=== PATIENT | female | born 1990 | race African-American/Black ===

== ENCOUNTER 2018-08-08 17:04 | Emergency (ER) | payer MEDICAID ==
[2018-08-08 17:20] VITALS: BMI 26.6
[2018-08-08] MEDS ORDERED: PRENAVITE1 TAB (17:23)
[2018-08-08] MEDS ORDERED: ZOFRAN4 MG PO (17:24)
[2018-08-08] MEDS ORDERED: PHENERGAN25 M1 PO (17:25)
[2018-08-08] MEDS ORDERED: TYLENOL W/CODEI1 TAB PO (18:09)
[2018-08-08 18:46] VITALS: BP 117/59
== END 2018-08-08 18:44 | disposition home or self-care (01) ==
LOC: D.ER 17:04
DX: Z04.1 Encounter for examination and observation following transport accident (principal)

== ENCOUNTER 2018-08-23 17:03 | Emergency (ER) | payer MEDICAID ==
[~2018-08-23] VITALS: Ht 160 cm; Wt 63.6 kg
[~2018-08-23 17:03] MED LIST: PHENERGAN25 M1 PO; PRENAVITE1 TAB; TYLENOL W/CODEI1 TAB PO; ZOFRAN4 MG PO
[2018-08-23 17:07] VITALS: Ht 160 cm; Wt 63.6 kg
[2018-08-23 17:34] LABS: BASOPHILS 0.1 % (0-2); EOSINOPHILS 1.6 % (0-7); HEMATOCRIT 30.1 % (36.0-48.0); HEMOGLOBIN 9.9 g/dL (12-16); IMMATURE GRANULOCYTES 0.2 % (0-5); LYMPHOCYTES 21.7 % (15-50); MCH 26.3 pg (26.0-34.0); MCHC 32.9 g/dL (31.0-37.0); MCV 80.1 fL (80.0-100.0); MEAN PLATELET VOLUME 9.2 fL (7.4-10.4); MONOCYTES 7.3 % (2-11); NEUTROPHILS 69.1 % (40-80); RBC 3.76 10x6/uL (4.00-5.40); RDW 16.8 % (11.5-14.5); WBC 8.4 10x3/uL (4.8-10.8)
[2018-08-23 17:52] LABS: ALBUMIN 2.8 g/dL (3.4-5.0); ALKALINE PHOSPHATASE 58 U/L (46-116); ALT (SGPT) 13 U/L (10-68); BILIRUBIN - TOTAL 0.23 mg/dL (0.2-1.3); CALC OSMOLALITY 269 mosm/kg (275-300); CALCIUM 8.8 mg/dL (8.5-10.1); CARBON DIOXIDE 23.1 mmol/L (21.0-32.0); CHLORIDE - SERUM 102 mmol/L (98-107); CREATININE - SERUM 0.6 mg/dL (0.6-1.3); GLUCOSE 92 mg/dL (74-106); POTASSIUM - SERUM 3.8 mmol/L (3.5-5.1); PROTEIN - SERUM 6.8 g/dL (6.4-8.2); SODIUM 136 mmol/L (136-145); UREA NITROGEN 7 mg/dL (7-18); eGFR NON AFRICAN AMERICAN > 90 mL/min (90-120)
[2018-08-23 18:03] LABS: PLATELET COUNT 314 10x3/uL (130-400)
[2018-08-23 18:14] LABS: HCG - QUANTITATIVE (MATERNAL) 90073 mIU/mL
[2018-08-23 19:05] LABS: APPEARANCE CLEAR (CLEAR); BILIRUBIN NEGATIVE (NEGATIVE); COLOR YELLOW (YELLOW); GLUCOSE NEGATIVE (NEGATIVE); KETONE NEGATIVE (NEGATIVE); NITRITE NEGATIVE (NEGATIVE); PROTEIN NEGATIVE (NEGATIVE); UROBILINOGEN NORMAL (NORMAL)
[2018-08-23] MEDS ORDERED: BENTYL10 MG PO (20:02)
[2018-08-23 20:56] VITALS: BP 90/56
== END 2018-08-23 20:57 | disposition home or self-care (01) ==
LOC: D.ER 17:03
PROVIDERS: Emergency Medicine
DX: O26.891 Other specified pregnancy related conditions, first trimester (principal); Z3A.11 11 weeks gestation of pregnancy; R10.9 Unspecified abdominal pain

== ENCOUNTER 2018-09-20 21:13 | Emergency (ER) | payer MEDICAID ==
[~2018-09-20] VITALS: Ht 160 cm; Wt 68.2 kg
[~2018-09-20 21:13] MED LIST changes: +BENTYL10 MG PO
[2018-09-20 21:41] VITALS: Ht 160 cm; Wt 68.2 kg
[2018-09-20 22:05] LABS: BASOPHILS 0.1 % (0-2); EOSINOPHILS 3.4 % (0-7); HEMATOCRIT 30.9 % (36.0-48.0); HEMOGLOBIN 10.4 g/dL (12-16); IMMATURE GRANULOCYTES 0.1 % (0-5); LYMPHOCYTES 12.6 % (15-50); MCH 27.3 pg (26.0-34.0); MCHC 33.7 g/dL (31.0-37.0); MCV 81.1 fL (80.0-100.0); MONOCYTES 11.7 % (2-11); NEUTROPHILS 72.1 % (40-80); PLATELET COUNT 294 10x3/uL (130-400); RBC 3.81 10x6/uL (4.00-5.40); RDW 16.3 % (11.5-14.5)
[2018-09-20 22:15] LABS: ALBUMIN 2.8 g/dL (3.4-5.0); ALKALINE PHOSPHATASE 68 U/L (46-116); ALT (SGPT) 14 U/L (10-68); BILIRUBIN - TOTAL 0.25 mg/dL (0.2-1.3); CALC OSMOLALITY 268 mosm/kg (275-300); CALCIUM 8.5 mg/dL (8.5-10.1); CHLORIDE - SERUM 101 mmol/L (98-107); CREATININE - SERUM 0.6 mg/dL (0.6-1.3); GLUCOSE 124 mg/dL (74-106); POTASSIUM - SERUM 3.3 mmol/L (3.5-5.1); PROTEIN - SERUM 7.3 g/dL (6.4-8.2); SODIUM 135 mmol/L (136-145); UREA NITROGEN 7 mg/dL (7-18); eGFR NON AFRICAN AMERICAN > 90 mL/min (90-120)
[2018-09-20 22:34] LABS: HCG - QUANTITATIVE (MATERNAL) 31295 mIU/mL
[2018-09-20 23:12] LABS: APPEARANCE CLEAR (CLEAR); BILIRUBIN NEGATIVE (NEGATIVE); COLOR YELLOW (YELLOW); GLUCOSE NEGATIVE (NEGATIVE); KETONE MODERATE mg/dL (NEGATIVE); NITRITE NEGATIVE (NEGATIVE); PROTEIN NEGATIVE (NEGATIVE); UROBILINOGEN NORMAL (NORMAL)
[2018-09-21] MEDS ORDERED: PHENERGAN25 M1 PO (00:36)
[2018-09-21 02:11] VITALS: BP 105/57
== END 2018-09-21 02:11 | disposition other institution (70) ==
LOC: D.ER 21:13
PROVIDERS: Emergency Medicine
DX: O21.0 Mild hyperemesis gravidarum (principal); Z3A.13 13 weeks gestation of pregnancy; R55 Syncope and collapse

== ENCOUNTER 2019-02-21 05:54 | Inpatient (IN) | payer MEDICAID ==
[~2019-02-21] VITALS: Ht 160 cm; Wt 81.4 kg
[2019-02-21 06:32] VITALS: BP 103/57; Ht 160 cm; Wt 81.4 kg
[2019-02-21 08:09] LABS: HEMATOCRIT 30.1 % (36.0-48.0); HEMOGLOBIN 9.4 g/dL (12-16); MCH 26.6 pg (26.0-34.0); MCHC 31.2 g/dL (31.0-37.0); MCV 85.3 fL (80.0-100.0); MEAN PLATELET VOLUME 10.3 fL (7.4-10.4); RBC 3.53 10x6/uL (4.00-5.40); WBC 6.4 10x3/uL (4.8-10.8)
--- NOTE | 2019-02-21 11:29 | NUR ---
SOPHIA LOT [id number] REF [id number] EXP 10/05/2023
--- NOTE | 2019-02-21 12:44 | NUR ---
FUNDUS IS MIDLINE AT THE UMBILICUS, FIRM. 2U. LOGAN PAD WITH MODERATE LOCHIA NOTED. NO CLOTS PRESENT. WILL CONTINUE TO MONITOR.
[2019-02-21 13:00] VITALS: BP 103/51
--- NOTE | 2019-02-21 13:00 | NUR ---
RECEIVED TO ROOM BY BED FROM RECOVERY, PT IS AWAKE AND ALERT, RATES PAIN AT 3/10. FUNDUS FIRM AT U/1 WITH LIGHT BLEEDING NOTED. ICE PACK IN PLACE OVER BIKINI INCISION WHICH IS COVERED BY LARGE ABD DRESSING AND IS CLEAN AND DRY. SMITH TO BEDSIDE DRAIN WITH 150ML CLEAR URINE TO COLLECTION CANISTER. IV INFUSING PER ORDER TO LEFT WRIST SITE. PT DENIES NAUSEA AND REQUEST APPLE JUICE TO DRINK. INFANT BROUGHT TO ROOM VIA CRIB PER NURSERY NURSE AND PLACED TO BREAST WITH NO ASSISTANCE NEEDED. CALLLIGHT IN REACH.
--- NOTE | 2019-02-21 13:30 | NUR ---
FUNDUS FIRM AT U/1, MODERATE LOCHIA NOTED, PADS CHANGED AND PT TILTED TO THE RIGHT. DENIES NEEDS.
--- NOTE | 2019-02-21 14:08 | NUR ---
FUNDUS FIRM AT U/1 NO CLOTS WITH MASSAGE, NEW ICE PACK PER REQUEST. FAMILY AT BEDSIDE.
--- NOTE | 2019-02-21 14:44 | NUR ---
PERCOCET 10/325MG GIVEN SCANNED TO EMAR. PT RATES PAIN AT INCISION SITE AT 10. POSITIONED TO HER BACK WITH HEAD OF BED LOWERED. LIGHT TURNED DOWN AND TAKEN TO NURSERY PER REQUEST. SIDE RAILS UP X 2 WITH CALL LIGHT IN REACH.
--- NOTE | 2019-02-21 15:30 | NUR ---
PAIN REASSESSMENT, PT RESTING WITH EYES CLOSED AND RESP EVEN, NO SIGN OF DISTRESS, LEFT UNDISTURBED WITH SIDE RAILS UP X 2 AND CALL LIGHT WITH IN REACH.
--- NOTE | 2019-02-21 16:15 | NUR ---
PT STILL SLEEPING. CALL LIGHT REMAINS WITHIN HER REACH.
--- NOTE | 2019-02-21 17:00 | NUR ---
TORDAL GIVEN FOR C/0 PAIN THAT SHE RATES AT 10/10. TO BREAST AT THIS TIME ALSO, FUNDUS FIRM AND MIDLINE AT U/U. WILL RECHECK PAIN AFTER SHE HAS FINISHED FEEDING
--- NOTE | 2019-02-21 17:45 | NUR ---
PT STATES THAT CRAMPING IS STILL PRESENT BUT NOT SHARP, RATES AT 5/10. LOGAN CARE PER THIS RN WITH WARM WET WASH CLOTH, UNDERPAD, TOWELS AND CHUX CHANGED. SMITH EMPTIED AND IV CLEARED. PT POSITIONS SELF FOR COMFORT. SIDE RAILS UP X 2 WITH CALL LIGHT IN REACH. IN CRIB AT BEDSIDE. LIGHTS OFF.
--- NOTE | 2019-02-21 18:50 | NUR ---
BEDSIDE REPORT COMPLETED.
[2019-02-21 18:57] VITALS: BP 121/67
--- NOTE | 2019-02-21 19:05 | NUR ---
BEDSIDE SHIFT REPORT DONE. PT. IN RT TILT. DROWSY. IN ROOM IN OPEN CRIB AT PRESENT.
[2019-02-21 19:45] VITALS: BP 113/59
--- NOTE | 2019-02-21 19:45 | NUR ---
INTO ROOM FOR ASSESSMENT. PT. LYING IN RT TILT SUPPORTED WITH PILLOW. DROWSY. IV NOTED IN LT WRIST WITH NS WITH 20U PITOCIN INFUSING AT 125CC/HR. NO REDNESS NOR EDEMA AT IV SITE. BREATH SOUNDS CLEAR, BOWEL SOUNDS AUDIBLE. SMITH CATH. PATENT WITH 75 CC URINE NOTED IN FLOW METER. ABD. DRESSING DRY AND INTACT. LOCHIA RUBRA SCANT. ICE CAP REFILLED AND PLACED ON ABD. DRESSING. PT. WITH CALM DEMEANOR. RATES PAIN AN 8 OF 10 AND STATES IS FROM ABD. CRAMPING. PT. HAS RECENTLY COMPLETED .
--- NOTE | 2019-02-21 21:06 | NUR ---
LYING IN LT TILT. EYES CLOSED AND RESPIRATIONS UNLABORED.
[2019-02-21 23:35] VITALS: BP 98/51
--- NOTE | 2019-02-21 23:35 | NUR ---
PT RESTING IN BED. FC DC'D WITH 150ML OF CONCENTRATED YELLOW URINE NOTED. PERIPAD CHANGED AND PANTIES PLACED. SMALL AMOUNT OF LOCHIA NOTED TO PERIPAD. FUNDUS FIRM AT 2 BELOW UMB. IV CONVERTED TO SL. PT ENCOURAGED TO DRINK WATER. ICE PITCHER FILLED. PUDDING PROVIDED PER PT REQUEST. PT INSTRUCTED ON VOID CHECKS AND TO NOTIFY NURSE FOR ASSISTANCE WHEN GETTING UP TO BATHROOM. BED IN LOW POSITION. SRUP X2. CALL LIGHT AND TELEPHONE WITHIN PTS REACH.
--- NOTE | 2019-02-22 00:50 | NUR ---
PT LYING IN BED HOLDING BABY. DENIES ANY COMPLAINTS OR NEEDS AT THIS TIME. BED IN LOW POSITION. SRUP X2. CALL LIGHT AND TELEPHONE WITHIN PTS REACH.
--- NOTE | 2019-02-22 02:05 | NUR ---
PT RESTING IN BED HOLDING BABY. DENIES ANY COMPLAINTS OR NEEDS. INSTRUCTED TO NOTIFY NURSE WITH ANY PROBLEMS, NEEDS, OR CONCERNS. VERBALIZED UNDERSTANDING. BED IN LOW POSITION. SRUP X2. CALL LIGHT AND TELEPHONE WITHIN PTS REACH.
[2019-02-22 04:15] VITALS: BP 113/56
--- NOTE | 2019-02-22 04:30 | NUR ---
PT RESTING IN BED. VSS. PT ASSISTED UP TO BATHROOM WITH NB NURSE AND VOIDED 425ML OF BLOOD TINGED URINE. SMALL CLOT NOTED IN SPECIPAN. PT C/O INCISIONAL PAIN AT 5/10. PERCOCET 5 X1 TABLET GIVEN. WATER PITCHER FILLED. PT INSTRUCTED TO NOTIFY NURSE WITH ANY PROBLEMS, NEEDS, OR CONCERNS. VERBALIZED UNDERSTANDING. BED IN LOW POSITION. SRUP X2. CALL LIGHT AND TELEPHONE WITHIN PTS REACH.
--- NOTE | 2019-02-22 05:45 | NUR ---
PT RESTING QUIETLY IN BED WITH EYES CLOSED. NO DISTRESS NOTED. CALL LIGHT WITHIN OTS REACH.
--- NOTE | 2019-02-22 06:20 | NUR ---
PT RESTING IN BED. IN OPEN CRIB AT BEDSIDE. PT DENIES ANY COMPLAINTS OR NEEDS. INSTRUCTED PT TO NOTIFY NURSE WITH ANY PROBLEMS, NEEDS, OR CONCERNS. VERBALIZED UNDERSTANDING. BED IN LOW POSITION. SRUP X2. CALL LIGHT AND PHONE WITHIN PTS REACH.
[2019-02-22 07:09] LABS: BASOPHILS 0 % (0-2); EOSINOPHILS 0.5 % (0-7); HEMATOCRIT 26.3 % (36.0-48.0); HEMOGLOBIN 8.5 g/dL (12-16); IMMATURE GRANULOCYTES 0.2 % (0-5); LYMPHOCYTES 13.8 % (15-50); MCH 27.4 pg (26.0-34.0); MCHC 32.3 g/dL (31.0-37.0); MCV 84.8 fL (80.0-100.0); MEAN PLATELET VOLUME 10.5 fL (7.4-10.4); MONOCYTES 8.6 % (2-11); NEUTROPHILS 76.9 % (40-80); PLATELET COUNT 206 10x3/uL (130-400)
[2019-02-22 07:11] LABS: WBC 8.2 10x3/uL (4.8-10.8)
--- NOTE | 2019-02-22 07:15 | NUR ---
CALL LIGHT ANSWERED. PT SITTING IN HIGH FOWLERS POSITION HOLDING . PT REPORTS DIFFICULTY SITTING UP TO REACH INFANT CRIB AND REQUESTS HELP WITH DIAPER CHANGE. DIAPER CHANGED AND INFANT BACK TO MOM ARMS FOR . PT DENIES FURTHER NEEDS AT THIS TIME.
--- NOTE | 2019-02-22 08:00 | NUR ---
PT IN HIGH FOWLERS POSITION EATING BREAKFAST TRAY AND HOLDING . PT STATES THAT INFANT DID NOT WANT TO NURSE EARLIER BUT SHE WILL TRY AGAIN SOON SHE IS DONE EATING. PT DENIES PAIN OR NEEDS AT THIS TIME. REPORTS THAT SHE WILL CALL OUT WHEN DONE FOR ASSESSMENT TO TAKE PLACE.
[2019-02-22 08:10] LABS: RAPID PLASMA REAGIN Non Reactive (Non Reactive)
--- NOTE | 2019-02-22 08:26 | NUR ---
PT ASSISTED OOB TO BR, VOIDED 400ML CLEAR YELLOW URINE TO SPECIPAN. TOLERATES ACTIVITY WELL. DENIES FURTHER NEEDS OR CONCERNS AT THIS TIME, CALL LIGHT IN EASY REACH, BED IN LOW POSITION, BED BRAKES LOCKED. WILL MONITOR.
--- NOTE | 2019-02-22 09:00 | NUR ---
PT IN SEMI FOWLERS POSITION RESTING WITH EYES CLOSED. RESP. EVEN AND UNLABORED.
[2019-02-22 09:58] VITALS: BP 102/55
--- NOTE | 2019-02-22 10:00 | NUR ---
PT IN HIGH FOWLERS POSITION VISITING WITH FRIEND. PHYSICAL ASSESSMENT DONE. SEE SHIFT ASSESSMENT. SALINE LOCK IN LEFT WRIST. SITE C/D/I. BOWEL SOUNDS ACTIVE X 4. PT DENIES PASSING GAS SINCE PROCEDURE. LOWER TRANSVERSE ABDOMINAL INCISION NOTED WITH MALACHI. INCISION IS C/D/I. FF/ U/U. LIGHT RUBRA LOCHIA NOTED ON LOGAN PAD. NO CLOTS EXPRESSED WITH MASSAGE. PT RATING PAIN 5/10 IN ABDOMINAL AREA AND REQUESTS PAIN MEDICATION.
--- NOTE | 2019-02-22 10:08 | NUR ---
PERCOCET 5/325MG GIVEN PO. PT DENIES FURTHER NEEDS AT THIS TIME.
--- NOTE | 2019-02-22 11:10 | NUR ---
PT IN LEFT TILT POSITION RESTING WITH EYES CLOSED. PT AROUSES TO VERBAL STIMULATION AND REQUESTS INFANT BE TAKEN TO NURSERY SO SHE MAY REST. INFANT PLACED IN CRIB AND TAKEN TO KAYLA RN. PT RATES PAIN 2/10 AND DENIES FURTHER NEEDS.
--- NOTE | 2019-02-22 12:30 | NUR ---
PT IN HIGH FOWLERS POSITION VISITING WITH FOB. INFANT UP IN FOB ARMS. MEAL TRAY PROVIDED FOR BOTH PATIENT AND FOB. BOTH DENY FURTHER NEEDS AT THIS TIME.
--- NOTE | 2019-02-22 13:48 | NUR ---
PT RATING PAIN 5/10. MOTRIN GIVEN PO SCHEDULED. TAKEN TO [facility] NURSERY SO PATIENT CAN REST. PT DENIESFURTHER NEEDS AT THIS TIME.
--- NOTE | 2019-02-22 14:50 | NUR ---
PT IN SEMI FOWLERS POSITION RESTING WITH EYES CLOSED. RESP. EVEN AND UNLABORED
--- NOTE | 2019-02-22 15:49 | NUR ---
PT CALLS OUT AND REQUESTS PAIN MEDICATION AND PRODUCTS FOR SHOWER. PERCOCET 5/325MG GIVEN FOR INCISIONAL PAIN. SALINE LOCK IN LEFT WRIST WILL NOT FLUSH. IV DCD WITH CATH TIP INTACT. PT ASSISTED UP TO SHOWER. TOWELS AND CLOTHS PROVIDED. LINEN CHANGED ON BED. 500MLS BLOOD TINGED URINE NOTED IN [place] HAT. PT REPORTS THAT IT IS FROM THE LAST 2 VOIDS.
[2019-02-22 15:50] VITALS: BP 113/61
--- NOTE | 2019-02-22 17:00 | NUR ---
PT OUT OF SHOWER AND BACK TO BED. INFANT TO ROOM FOR FEEDING
--- NOTE | 2019-02-22 18:00 | NUR ---
PT IN HIGH FOWLERS POSITION EATING CHORAL DIRECTOR SALAD. DENIES NEEDS AT THIS TIME.
--- NOTE | 2019-02-22 19:30 | NUR ---
PT. AWAKE AND ORIENTED. HOLDING INFANT AT PRESENT. STATES INFANT HAS NURSED WELL. REQUESTING PAIN MEDICATION FOR A PAIN SCORE OF 5 OF 10 ON PAIN SCALE. LYING ON BACK WITH NOB AT 30 DEGREES. LYING ON PT'S CHEST.
[2019-02-22 19:31] VITALS: BP 97/57
--- NOTE | 2019-02-22 19:48 | NUR ---
PAIN MEDICATIONS GIVEN ORDERED. RATES PAIN A 5 OF 10 FOR ABD. CRAMPING. REPORTS NOT PASSING FLATUS. ABD. SOFT TO TOUCH. INCISION CLEAN AND DRY AND WITHOUT REDNESS. LOCHIA RUBRA SCANT. DENIES ANY PAIN IN LOWER EXTREMITIES. BREATH SOUNDS CLEAR AND BOWEL SOUNDS ACTIVE.
--- NOTE | 2019-02-22 21:35 | NUR ---
PT RESTING QUIETLY AT THIS TIME. NO COMPLAINTS OR NEEDS VERBALIZED AT THIS TIME. Marbin JAMESON RN
--- NOTE | 2019-02-22 22:40 | NUR ---
PT REC'D IN BED AT THIS TIME. ASLEEP. RESPS EVEN AND UNLABORED. Marbin JAMESON RN
--- NOTE | 2019-02-23 | NUR ---
PT ASLEEP AT THIS TIME WITH IN CRIB AT BEDSIDE. Marbin JAMESON RN
--- NOTE | 2019-02-23 02:38 | NUR ---
PT MEDICATED WITH SCHEDULED MOTRIN. Marbin JAMESON RN
--- NOTE | 2019-02-23 04:50 | NUR ---
pt rec'd in bed asleep with at bedside. no distress noted. schuyler ovalle rn
--- NOTE | 2019-02-23 06:00 | NUR ---
PT UP AT THIS TIME. GIVEN LINENS SO PT MAY SHOWER. NO DISTRESS NOTED. Marbin JAMESON RN
[2019-02-23 07:42] VITALS: BP 114/62
--- NOTE | 2019-02-23 07:42 | NUR ---
AM ASSESSMENT COMPETED CHARTED FLOWSHEET. FUNDUS FIRM U/U MIDLINE WITH LIGHT BLEEDING NOTED. BIKINI INCISION CLEAN AND DRY AND PT STATES UNDERSTANDING HOW TO CARE FOR INCISION. PT HAS ALREADY SHOWERED THIS AM AND IS NOW SITTING UP ON SIDE OF BED WITH REGULAR BREAKFAST TRAY. RATES PAIN AT 5/10 AND IS GIVEN PAIN MED SHE REQUESTED. CALL LIGHT IN REACH.
--- NOTE | 2019-02-23 08:20 | NUR ---
RATES PAIN AT 2/10 AT THIS TIME. INFANT IN CRIB AT BEDSIDE. NO NEEDS VOICED.
--- NOTE | 2019-02-23 10:00 | NUR ---
PT RESTING WITH EYES CLOSED AND RESP EVEN, NO DISTRESS NOTED. LEFT UNDISTURBED AT THIS TIME. IN CRIB AT BEDSIDE.
--- NOTE | 2019-02-23 10:38 | NUR ---
DR GONZALEZ ON L&D, V.O. RECIEVED TO [place] [facility] TODAY.
[2019-02-23] MEDS ORDERED: PERCOCET 5-3251 TAB PO (11:20)
--- NOTE | 2019-02-23 12:15 | NUR ---
LARGE CUP OF ICE PER REQUEST. DENIES ANY OTHER NEEDS AT THIS TIME.
--- NOTE | 2019-02-23 13:30 | NUR ---
PAIN MED GIVEN PER PT REQUEST, RATES AT 4/10. VERBAL AND WRITTEN DISCHARGE INSTRUCTIONS GONE OVER WITH WRITTEN SCRIPT GIVEN TO PT FOR PERCOCET 5/325MG. PT STATES UNDERSTANDING OF ALL INFO GIVEN AND DENIES ANY QUESTIONS OR CONCERNS. SHE IS DRESSING INFANT AND WAITING ON HER RIDE TO ARRIVE, WILL CALL WHEN READY.
--- NOTE | 2019-02-23 14:30 | NUR ---
INFANT SECURED IN TO CARRIER, TAKEN OUT BY WHEELCHAIR WITH INFANT. HOME BY PRIVATE CAR WITH FAMILY.
--- NOTE | 2019-03-13 08:15 | OP ---
PATIENT NAME: ZELDA SOLOMON MEDICAL RECORD: [id number] :88 LOCATION:[id number] ADMISSION DATE:02/21/19 SURGEON: ALBAN IYER MD DATE OF OPERATION: PREOPERATIVE DIAGNOSES: 1. Prior section. 2. at term. 3. Undesired fertility. POSTOPERATIVE DIAGNOSES: 1. Prior section. 2. at term. 3. Undesired fertility. 4. Dense pelvic adhesions. PROCEDURES: 1. Repeat low transverse section. 2. Lysis of adhesions. 3. Bilateral tubal ligation. SURGEON: Alban Iyer MD HYPERION ESSBASE DEVELOPER: Jose Alejandro Davila. ANESTHESIA: Spinal. FINDINGS: Uterus is densely adhesed to the rectus. Tubes and ovaries unremarkable. delivered, Apgars 9 and 9, weight 7 pounds 2.1 ounces. SPECIMEN REMOVED: Placenta. SPECIMEN DISPOSITION: Discarded. ESTIMATED BLOOD LOSS: 800 cc. FLUIDS: 2000 cc lactated Ringer's. URINE OUTPUT: 300 cc of clear urine. COMPLICATIONS: None. DRAIN: Ferrer to gravity. INDICATIONS: The patient is a 28-year-old parous female for a repeat . Risks and benefits have been described. The patient also wants tubal ligation and the risks, benefits as well as alternatives have been discussed. The patient understands the risk of ectopic and wishes to proceed. DESCRIPTION OF PROCEDURE: After informed consent was assured, the patient was taken to the operating room, anesthetic was obtained without difficulty. The patient is now prepped and draped. An incision is made after assessment of the anesthetic. An incision was taken down to the underlying layer of the fascia, which was opened in the midline and OPERATIVE REPORT [id number] ZELDA SOLOMON extended laterally. Rectus bellies were dissected free of the fascia and then in the midline. Uterus was immediately encountered upon entering the peritoneum. The uterus was taken down with both sharp dissection and Bovie cautery. Once the uterus was adequately mobilized, DeLee all-purpose retractors inserted and low transverse hysterotomy performed. was now delivered on to the abdomen atraumatically. The cord was doubly clamped and cut and the passed to the attendant. The placenta delivered via Crede maneuver. Uterus exteriorized, cleared of all clot and debris. The hysterotomy was now closed with a running locked stitch of 0-Vicryl. Once the uterus was closed with adequate hemostasis achieved, attention was directed to the right tube where a knuckle was developed and this knuckle of tube was doubly ligated. Immediately the segment of tube contained within the knuckle is excised with Metzenbaum scissors and the ostium was cauterized. This was repeated on the contralateral side. Once both tubes have been ligated and cut, the uterus was now returned to the abdomen. Reinspection of the hysterotomy revealed some oozing. Idalia was now placed over this operative site. The fascia was closed with looped PDS. Skin irrigated and bleeding vessels cauterized and the skin reapproximated. Sponge, lap, and needle counts correct times 2 and sterile dressing was applied. TRANSINT:[id number] Voice Confirmation ID: [id number] DOCUMENT ID: [id number] ALBAN IYER MD at 0815 CC: [id number] DICTATION DATE: 03/11/19 1510 AIRCRAFT SALES REPRESENTATIVE: 03/11/19 2143 DIS IN 02/23/19 [id number] [place] [address]
== END 2019-02-23 14:30 | disposition home or self-care (01) | DRG 785 ==
LOC: D.LD 05:54 → D.SDCHOLD 09:00 → D.LD 02-23 14:30
PROVIDERS: ADMIT Obstetrics & Gynecology; ATTEND Obstetrics & Gynecology
PROC: 10D00Z1 Extraction of Products of Conception, Low, Open Approach (ICD-10-PCS; 2019-02-21)
PROC: 10D00Z1 Extraction of Products of Conception, Low, Open Approach (ICD-10-PCS; principal; 2019-02-21 09:00)
PROC: 0UB70ZZ Excision of Bilateral Fallopian Tubes, Open Approach (ICD-10-PCS; 2019-02-21 09:00)
DX: O13.4 Gestational [pregnancy-induced] hypertension without significant proteinuria, complicating childbirth (principal); Z3A.38 38 weeks gestation of pregnancy; Z37.0 Single live birth; Z30.2 Encounter for sterilization; Z87.891 Personal history of nicotine dependence

== ENCOUNTER 2019-10-27 18:41 | Emergency (ER) | payer MEDICAID ==
[~2019-10-27] VITALS: Ht 162.6 cm; Wt 75.0 kg
[~2019-10-27 18:41] MED LIST changes: +PERCOCET 5-3251 TAB PO
[2019-10-27 18:54] VITALS: Ht 162.6 cm; Wt 75.0 kg
[2019-10-27] MEDS ORDERED: ULTRAM50 MG PO (21:36)
[2019-10-27 23:53] VITALS: BP 102/53
== END 2019-10-27 22:07 | disposition home or self-care (01) ==
LOC: D.ER 18:41
DX: M47.9 Spondylosis, unspecified (principal); M54.5 Low back pain